=== PATIENT | male | born 1945 | race Caucasian/White ===

== ENCOUNTER 2023-09-16 02:45 | Emergency (ER) | payer OTHER, SELFPAY ==
[2023-09-16 02:45] VITALS: BMI 22.7
[2023-09-16 02:46] VITALS: BP 145/74
[2023-09-16 03:37] LABS: COVID-19 Antigen Negative (Negative)
--- NOTE | 2023-09-16 03:54 | ED.GENMED ---
History of Present Illness
General
Chief Complaint: Breathing Problem
Source: patient and spouse
Exam Limitations: none
Time Seen by Provider: 09/16/23 03:49
Travel History
Have you had any contact with someone who has COVID-19?: No
Do you have any symptoms of coronavirus? Fever > 100 degrees, chills, cough, shortness of breath, sore throat, loss of taste or smell, muscle aches, or headache?: Yes
Symptoms:: cough
History of Present Illness
History of Present Illness:
See MDM
Past History
Past History
ED Past Medical History: Arrthythmia, CAD, Other (arthritis, lyme) and Other (kidney stones)
ED Past Surgical History: Cardiac (Triple bypass)
Social History
Tobacco: Former smoker
Alcohol: Former
Drug: None
Personal:
Living: with family
Employment: Employed
Family History
Family History: Early CAD
Phy Exam
Physical Exam
Physical Exam:
See MDM
Scores
Heart Failure Risk
Heart Failure Risk Score: Not Applicable
Course
Orders/Labs/Results
Orders:
Orders
09/16/23 03:09
CR Chest - 2 Views Urgent
Comment:
Reason For Exam: respiratory distress
09/16/23 03:14
COVID-19 Antigen Urgent
Source: Nasal Swab
Influenza A+B Rapid Molecular Urgent
YENNY Source: Nasal Swab
Specimen Description:
09/16/23 04:09
CT Chest Pe Study Urgent
Comment:
Reason For Exam: Chest pain, hemoptysis
09/16/23 04:15
Complete Blood Count/With Diff Urgent
Comprehensive Metabolic Panel Urgent
09/16/23 04:21
Guaifenesin/Codeine Solution [Robitussin AC] 10 ml PO NOW STA
09/16/23 06:13
Doxycycline [Vibramycin] 100 mg PO NOW STA
Abnormal Lab Results
09/16/23
04:15
RBC 3.68 L 10^6/uL
(4.70-6.10)
Hgb 12.8 L g/dL
(13.0-18.0)
Hct 36.3 L %
(39.0-52.0)
MCV 98.6 H fL
(80.0-94.0)
MCH 34.8 H pg
(27.0-31.0)
Plt Count 103 L 10^3/uL
(130-400)
MPV 12.2 H fL
(7.4-10.4)
Absolute Lymphs (auto) 0.8 L 10^3/uL
(1.2-3.4)
Lymphocytes % 13.9 L %
(20.5-51.1)
Monocytes % 9.5 H %
(1.7-9.3)
Sodium 129 L mmol/L
(135-145)
Creatinine 0.5 L mg/dL
(0.7-1.3)
09/16/23 04:15
09/16/23 04:15
Vital Signs
Initial and Last Documented VS:
Initial Vital Signs
Temp Pulse Resp BP Pulse Ox
97.8 F 74 20 145/74 96
09/16/23 02:46 09/16/23 02:46 09/16/23 02:46 09/16/23 02:46 09/16/23 02:46
Last Documented Vital Signs
Temp Pulse Resp BP Pulse Ox
97.8 F 56 16 120/61 98
09/16/23 02:46 09/16/23 05:00 09/16/23 05:00 09/16/23 05:00 09/16/23 05:00
MDM/Problems Addressed
Differential Diagnosis Includes:
HPI and MDM Narrative:
78-year-old male presenting for evaluation of hemoptysis. Patient has been coughing for the past 2 weeks. He was placed on azithromycin yesterday. Due to the persistent coughing, he is now noticing blood-tinged sputum.
Given duration of symptoms, chest x-ray obtained. There is no obvious pneumonia on chest x-ray. Given his symptoms, will obtain CT rule out PE versus lung mass
Physical exam
General: Well appearing and non-toxic
HEENT: protecting airway. Posterior pharynx clear
Neck: appears supple
CV: No evidence of cyanosis. Regular rate and rhythm
Resp: No accessory muscle use. Lungs clear
Abd: Non-distended
Extremities: No deformities
Neuro: alert
Psych: Normal affect
Skin: Intact
Problems Addressed including Acute and Chronic Conditions affecting care:
1. Hemoptysis
Acuity: acute
Prognosis: stable
Details: Likely in the setting of persistent coughing. Chest x-ray clear. Will obtain CT rule out PE versus lung mass
Updates
CT negative for mass or PE. There is concern for atelectasis versus pneumonia. Will add doxycycline to his azithromycin and will write for cough medicine. On reassessment, patient states he is feeling much better
Differential Diagnosis (but not limited to): Pulmonary embolism, lung mass, pneumonia
Testing considered: D-dimer
Drug therapy (if applicable): OTC meds, please see d/c instruction regarding Rx drugs
Amount and/or Complexity of Data Reviewed
Clinical info obtained from: Patient
External data reviewed: N/A
Labs I independently reviewed (but not limited to): White blood cell count normal
Radiology: X-ray independently reviewed: Chest x-ray without obvious pneumonia
Pulse Ox: not hypoxic
EKG independently reviewed: N/A
Component Assembler: N/A
Critical Care: N/A
Risk of Complication:
Social Determinants of health: Good social support
Discussed with other providers: N/A
Escalation of Care includes Admit/Obs: After being observed in the Emergency Department, pt stable for discharge.
Occasional wrong word or 'sound a like' substitutions may have occurred due to the inherent limitations of voice recognition software. Read the chart carefully and recognize, using context, where substitutions have occurred.
*Critical Care Note
Total Time (30-74mins, 75-104mins- exclusive of procedures): Not Applicable
ED Attending Note
-
Portions of this chart may have been created with voice recognition software.� Occasional wrong word or��sound alike� substitutions may have occurred due to the inherent limitations of voice recognition software.
Discharge Plan
Departure
Patient Disposition: Home (Routine Discharge)
Date of Disposition: 09/16/23
Time of Disposition: 06:28
Patient with high blood pressure during this ER visit?: No
Discharge Problem:
Bronchitis
Instructions: Acute Bronchitis, Adult (DC)
Prescriptions:
New
albuterol sulfate [ProAir HFA] 90 mcg/actuation Hfa Aerosol Inhaler
1 puff INHALATION Q4HPRN PRN (Reason: shortness of breath) Qty: 8.5 0RF
doxycycline hyclate 100 mg capsule
100 mg PO BID Qty: 14 0RF
codeine-guaifenesin 10-100 mg/5 mL liquid
5 ml PO Q6H PRN (Reason: Cough) Qty: 200 0RF
No Action
aspirin 81 MG tablet,delayed release (DR/EC)
81 mg PO DAILY
ferrous sulfate [FeroSul] 325 MG tablet
65 mg PO DAILY
multivitamin with folic acid [Tab-A-Sofie] 1 TABLET tablet
1 tab PO DAILY
atorvastatin [Lipitor] 80 MG tablet
80 mg PO DAILY
levothyroxine 50 MCG tablet
50 mcg PO DAILY
hydroxychloroquine 200 MG tablet
400 mg PO DAILY
pxzmy-wz-[id number]-[id number]-vsc-tsqijhk-ast [MegaRed [place]-3 Krill Oil] 1 EACH capsule
1 ea PO DAILY
cholecalciferol (vitamin D3) 125 MCG tablet,disintegrating
125 mcg PO DAILY
metoprolol succinate 25 MG tablet extended release 24 hr
25 mg PO DAILY
Entresto 24-26 mg Tablet
1 tab PO BID
acetaminophen [acetaminophen] 325 mg tablet
650 mg PO Q4HPRN PRN (Reason: mild pain) Qty: 1 0RF
ibuprofen 200 mg tablet
400 - 600 mg PO Q6HPRN PRN (Reason: moderate pain) Qty: 1 0RF
Referrals:
Wili Espinoza MD [Family Provider] -
Activity Restrictions/Additional Instructions:
Please return for any worsening symptoms.
You may return at any time if you have further concerns.
Please follow up with your doctor at the first available appointment, preferably this week.
Thank you for choosing [facility].
Interventions
Interventions:
*Risk Screen - Suicide Last Done: 09/16/23 02:46
*General Assessment Last Done: 09/16/23 02:46
*Neglect/Abuse Screening Last Done: 09/16/23 02:46
ED- Fall Risk Assessment Last Done: 09/16/23 02:46
*ED COVID-19 Vaccine History Last Done: 09/16/23 02:46
ED- Cardiac Assessment Last Done: 09/16/23 03:18
ED- Pulmonary Assessment Last Done: 09/16/23 03:18
[2023-09-16 04:14] VITALS: BP 123/64
[2023-09-16] MEDS: ROBITUSSIN AC 10 ML PO (04:27)
[2023-09-16 04:36] LABS: % Basophils 0.5 % (0-2); % Eosinophils 2.6 % (0-6); % Immature Granulocytes 0.2 % (0-0.5); % Lymphocytes 13.9 % (20.5-51.1); % Monocytes 9.5 % (1.7-9.3); % Neutrophils 73.3 % (42.2-75.2); Absolute Eosinophils 0.2 10^3/uL (0-0.7); Absolute Lymphocytes 0.8 10^3/uL (1.2-3.4); Absolute Monocytes 0.5 10^3/uL (0.1-0.6); Absolute Neutrophils 4.2 10^3/uL (1.4-6.5); Hematocrit 36.3 % (39.0-52.0); Hemoglobin 12.8 g/dL (13.0-18.0); Mean Corp Hgb Conc. 35.3 g/dL (33.0-37.0); Mean Corpuscular Hgb 34.8 pg (27.0-31.0); Mean Corpuscular Volume 98.6 fL (80.0-94.0); Mean Platelet Volume 12.2 fL (7.4-10.4); Nucleated Red Blood Cells % 0 % (-); Platelet Count 103 10^3/uL (130-400); Red Blood Cell Count 3.68 10^6/uL (4.70-6.10); Red Cell Dist. Width 12.1 % (11.5-14.5); White Blood Cell Count 5.7 10^3/uL (4.8-10.8)
[2023-09-16 04:57] LABS: ALT (SGPT) 31 U/L (0-50); AST (SGOT) 44 U/L (17-59); Albumin 3.9 g/dl (3.5-5.0); Alkaline Phosphatase 59 U/L (38-126); Blood Urea Nitrogen 15 mg/dl (9-20); Calcium 8.4 mg/dl (8.4-10.2); Carbon Dioxide 25 mmol/L (22-30); Chloride 99 mmol/L (98-107); Estimated Creatinine Clearance 93 ml/min; Glucose 92 mg/dl (70-99); Potassium 4.3 mmol/L (3.5-5.1); Sodium 129 mmol/L (135-145); Total Bilirubin 0.6 mg/dl (0.2-1.3); Total Protein 6.4 g/dl (6.3-8.2); eGFR > 60.00
[2023-09-16 05:00] VITALS: BP 120/61
[2023-09-16] MEDS: VIBRAMYCIN 100 MG PO (06:31)
[2023-09-16 06:34] VITALS: BP 118/70
== END 2023-09-16 06:36 | disposition home or self-care (01) ==
LOC: EMR 02:45
PROVIDERS: EMERGENCY PHYSICIAN Student in an Organized Health Care Education/Training Program; FAMILY PHYSICIAN Family Medicine
DX: J40 Bronchitis, not specified as acute or chronic (principal); I25.10 Atherosclerotic heart disease of native coronary artery without angina pectoris; Z82.49 Family history of ischemic heart disease and other diseases of the circulatory system; Z87.442 Personal history of urinary calculi; Z87.891 Personal history of nicotine dependence; Z95.1 Presence of aortocoronary bypass graft; Z95.810 Presence of automatic (implantable) cardiac defibrillator
CPT/HCPCS: 99284; 71046; 71275; 80053; 85025; 87502; 87811; Q9967

== ENCOUNTER → 2023-11-25 09:25 | Outpatient (REF) | payer OTHER, SELFPAY | LOC: RAD 09:25 | PROVIDERS: ATTENDING PHYSICIAN Family Medicine | DX: S46.211A Strain of muscle, fascia and tendon of other parts of biceps, right arm, initial encounter (principal) | CPT/HCPCS: 73060 ==

== ENCOUNTER → 2024-05-29 16:30 | Outpatient (REF) | payer OTHER, SELFPAY | LOC: UCDH 16:30 | PROVIDERS: ATTENDING PHYSICIAN Emergency Medicine Emergency Medical Services; FAMILY PHYSICIAN Family Medicine | DX: S20.212A Contusion of left front wall of thorax, initial encounter (principal) | CPT/HCPCS: 71101 ==

== ENCOUNTER → 2024-08-07 08:43 | Outpatient (REF) | payer OTHER, SELFPAY | LOC: RAD 08:43 | PROVIDERS: ATTENDING PHYSICIAN Physician Assistant; FAMILY PHYSICIAN Family Medicine | DX: R07.81 Pleurodynia (principal) | CPT/HCPCS: 71101 ==

== ENCOUNTER → 2024-12-26 11:18 | Outpatient (REF) | payer OTHER, SELFPAY | LOC: RCS 11:18 | PROVIDERS: ATTENDING PHYSICIAN Internal Medicine; FAMILY PHYSICIAN Family Medicine | DX: I25.5 Ischemic cardiomyopathy (principal); I25.10 Atherosclerotic heart disease of native coronary artery without angina pectoris; I34.0 Nonrheumatic mitral (valve) insufficiency; I35.1 Nonrheumatic aortic (valve) insufficiency; I50.32 Chronic diastolic (congestive) heart failure; I35.0 Nonrheumatic aortic (valve) stenosis | CPT/HCPCS: 93306 ==

== ENCOUNTER → 2025-03-05 11:01 | Outpatient (REF) | payer OTHER, SELFPAY ==
--- NOTE | 2025-03-05 12:13 | EEG.RPT ---
Electroencephalogram Report
Recording
Date of EE03/05/25
Type of EEG: Routine
Length of EEG recordin minutes
Done with Video Recording: No
Patient Status: Outpatient
Recording Conditions: Awake, Drowsy and Asleep
Hyperventilation Performed: No
Photic Stimulation Performed: Yes
Report
LESS THAN 1 HOUR EEG REPORT
LESS THAN 1 HOUR EEG INTERPRETATION:
Likely unremarkable EEG for age
CLINICAL CORRELATION:
Although normative values not been established for a person of this advanced age, the patient�s symmetry of the background suggests that this study was unremarkable.
A normal EEG does not rule out a diagnosis of epilepsy. If clinical suspicion for seizure persists, a prolonged recording may be warranted.
Clinical correlation is advised.
METHODS:
A 21 channel digitized electroencephalogram (EEG) was performed using the 10/20 international system of electrode placement and one-lead of ECG recorded. The [employer] quantitative review system was utilized.
ELECTROENCEPHALOGRAPHER IMPRESSION(S):
Quality of study
Good
Background
There was an unremarkable anterior-posterior voltage gradient of alpha frequency.
With eye opening the background activity changed to a low voltage mixture of frequencies.
There were no significant asymmetries of background activity noted.
Sleep
Drowsiness present
Photic Stimulation
No driving
ECG
Normal sinus rhythm
== END ==
LOC: EEG 11:01
PROVIDERS: ATTENDING PHYSICIAN Family Medicine; FAMILY PHYSICIAN Family Medicine
DX: R56.9 Unspecified convulsions (principal)
CPT/HCPCS: 95816

== ENCOUNTER → 2025-04-23 08:11 | Outpatient (REF) | payer OTHER, SELFPAY | LOC: MRI 08:11 | PROVIDERS: ATTENDING PHYSICIAN Family Medicine; FAMILY PHYSICIAN Family Medicine; REFERRING PHYSICIAN Radiology Diagnostic Radiology | DX: R56.9 Unspecified convulsions (principal); Z13.89 Encounter for screening for other disorder; Z13.5 Encounter for screening for eye and ear disorders | CPT/HCPCS: 70030; 70553; 76014; 76015; A9575 ==